=== PATIENT | male | born 1950 | race Caucasian/White ===

== ENCOUNTER 2019-01-13 12:36 | Emergency (ER) | payer MEDICARE, OTHER | END 2019-01-13 14:08 | disposition home or self-care (01) | LOC: FTE 12:36 | DX: S42.032A Displaced fracture of lateral end of left clavicle, initial encounter for closed fracture (principal); I10 Essential (primary) hypertension; W10.9XXA Fall (on) (from) unspecified stairs and steps, initial encounter; Y92.9 Unspecified place or not applicable | CPT/HCPCS: 73000; 99283-25 ==